=== PATIENT | male | born 1950 | race Caucasian/White ===

== ENCOUNTER 2017-11-01 20:47 | Inpatient (IN) | payer OTHER, BC, MEDICARE ==
[2017-11-01 23:38] LABS: ADD MAN DIFF? NO
[2017-11-01 23:42] LABS: WHITE BLOOD COUNT 7.2 10^3/ul (4.8-10.8)
[2017-11-01 23:42] LABS: BASOPHILS % 0.3 % (0.0-2.0); EOSINOPHILS % 0.1 % (0.0-7.0); HEMATOCRIT 43.4 % (42.0-52.0); HEMOGLOBIN 14.8 g/dl (14.0-18.0); LYMPHOCYTES # 0.8 10^3/ul (0.8-2.9); LYMPHOCYTES % 10.5 % (15.0-51.0); MEAN CORPUSCULAR HEMOGLOBIN 30.6 pg (29.0-33.0); MEAN CORPUSCULAR HGB CONC 34.1 g/dl (32.0-37.0); MEAN CORPUSCULAR VOLUME 89.9 fl (82.0-101.0); MEAN PLATELET VOLUME 9.9 fl (7.4-10.4); MONOCYTE # 0.6 10^3/ul (0.3-0.9); MONOCYTES % 8.3 % (0.0-11.0); NEUTROPHIL # 5.8 10^3/ul (1.6-7.5); NEUTROPHILS % 80.5 % (39.0-77.0); PLATELET COUNT 240 10^3/UL (140-415); RED BLOOD COUNT 4.83 10^6/ul (4.70-6.10); RED CELL DISTRIBUTION WIDTH 12.8 % (11.5-14.5)
[2017-11-01] MEDS: ONDANSETRON 4 MG INJ IV (23:46)
[2017-11-01] MEDS: SOD CHLORIDE 0.9% 500 ML IV (23:46)
[2017-11-01] MEDS: morphine 4 MG/ML VIAL IV (23:46)
[2017-11-01 23:52] LABS: ADD UMIC YES; UR ASCORBIC ACID 20 mg/dL (NEGATIVE); UR BACTERIA FEW /HPF (NONE SEEN); UR BILIRUBIN (Dip) NEGATIVE (NEGATIVE); UR BLOOD (Dip) 2+ mg/dL (NEGATIVE); UR CALCIUM OXALATE CRYSTAL FEW /HPF (NONE SEEN); UR CLARITY SLIGHTLY CLOUDY (CLEAR); UR COLOR YELLOW (YELLOW); UR GLUCOSE (Dip) 1+ mg/dL (NEGATIVE); UR KETONES (Dip) 2+ mg/dL (NEGATIVE); UR LEUKOCYTE ESTERASE (Dip) NEGATIVE Leu/ul (NEGATIVE); UR MUCUS MODERATE /HPF (NONE SEEN); UR NITRITE (Dip) NEGATIVE (NEGATIVE); UR RBC 82 /HPF (0-5); UR SPECIFIC GRAVITY (Dip) 1.026 (1.003-1.030); UR SQUAMOUS EPITHELIAL CELL FEW /HPF (FEW); UR TOTAL PROTEIN (Dip) 1+ mg/dl (NEGATIVE); UR UROBILINOGEN (Dip) 1+ mg/dL (NEGATIVE); UR WBC 3 /HPF (0-5)
[2017-11-01 23:59] LABS: ALANINE AMINOTRANSFERASE 16 IU/L (13-69); ALBUMIN 3.8 g/dl (3.3-4.9); ALBUMIN/GLOBULIN RATIO 1.18; ALKALINE PHOSPHATASE 54 IU/L (42-121); ANION GAP 12 (8-16); ASPARTATE AMINO TRANSFERASE 25 IU/L (15-46); BILIRUBIN,INDIRECT 2.2 mg/dl (0-1.1); BILIRUBIN,TOTAL 2.2 mg/dl (0.2-1.3); BLOOD UREA NITROGEN 22 mg/dl (7-20); CALCIUM 8.8 mg/dl (8.4-10.2); CARBON DIOXIDE 27 mmol/L (21-31); CHLORIDE 100 mmol/L (97-110); CREATININE 0.65 mg/dl (0.61-1.24); GLUCOSE 136 mg/dl (70-220); LIPASE 45 U/L (23-300); POTASSIUM 4.4 mmol/L (3.5-5.1); SODIUM 135 mmol/L (135-144)
[2017-11-02] MEDS ORDERED: NACL 0.9% 3 ML SYG IV (03:00)
[2017-11-02] MEDS ORDERED: ONDANSETRON 4 MG INJ IV (03:00)
[2017-11-02] MEDS: DEXTROSE 5%-0.45% NACL 1,000 ML IV ×3 (04:12→20:39)
[2017-11-02] MEDS: morphine 2 MG INJ IV (05:12)
[2017-11-02] MEDS: FAMOTIDINE 20 MG INJ IV ×2 (09:04→21:04)
[2017-11-02] MEDS: ENOXAPARIN 40 MG/0.4 ML SYG SC (09:16)
[2017-11-02] MEDS: DIATR MEGLU/DIATRIZOATE SODIUM 120 ML BTL (14:31)
[2017-11-03 05:11] LABS: ADD MAN DIFF? NO
[2017-11-03 05:12] LABS: BASOPHILS % 0.2 % (0.0-2.0); HEMATOCRIT 44.9 % (42.0-52.0); HEMOGLOBIN 15.3 g/dl (14.0-18.0); LYMPHOCYTES # 0.7 10^3/ul (0.8-2.9); LYMPHOCYTES % 8.1 % (15.0-51.0); MEAN CORPUSCULAR HEMOGLOBIN 30.2 pg (29.0-33.0); MEAN CORPUSCULAR HGB CONC 34.1 g/dl (32.0-37.0); MEAN CORPUSCULAR VOLUME 88.7 fl (82.0-101.0); MEAN PLATELET VOLUME 10.4 fl (7.4-10.4); MONOCYTE # 0.9 10^3/ul (0.3-0.9); MONOCYTES % 10.7 % (0.0-11.0); NEUTROPHILS % 80.8 % (39.0-77.0); PLATELET COUNT 274 10^3/UL (140-415); RED BLOOD COUNT 5.06 10^6/ul (4.70-6.10); RED CELL DISTRIBUTION WIDTH 12.7 % (11.5-14.5)
[2017-11-03 05:12] LABS: WHITE BLOOD COUNT 8.7 10^3/ul (4.8-10.8)
[2017-11-03 05:54] LABS: PHOSPHORUS 4.8 mg/dl (2.5-4.9)
[2017-11-03 05:54] LABS: MAGNESIUM 1.9 mg/dl (1.7-2.5)
[2017-11-03 05:57] LABS: ANION GAP 13 (8-16); BLOOD UREA NITROGEN 23 mg/dl (7-20); CALCIUM 9.1 mg/dl (8.4-10.2); CARBON DIOXIDE 34 mmol/L (21-31); CHLORIDE 96 mmol/L (97-110); CREATININE 0.71 mg/dl (0.61-1.24); GLUCOSE 152 mg/dl (70-220); POTASSIUM 3.8 mmol/L (3.5-5.1); SODIUM 139 mmol/L (135-144)
[2017-11-03] MEDS: DEXTROSE 5%-0.45% NACL 1,000 ML IV ×3 (06:24→21:08)
[2017-11-03] MEDS: FAMOTIDINE 20 MG INJ IV ×2 (08:32→21:08)
[2017-11-03] MEDS: ENOXAPARIN 40 MG/0.4 ML SYG SC (08:34)
[2017-11-04] MEDS: DEXTROSE 5%-0.45% NACL 1,000 ML IV ×3 (04:59→20:29)
[2017-11-04 05:46] LABS: ADD MAN DIFF? NO
[2017-11-04 06:00] LABS: BASOPHILS % 0.2 % (0.0-2.0); EOSINOPHILS % 0.1 % (0.0-7.0); HEMATOCRIT 43.6 % (42.0-52.0); HEMOGLOBIN 14.8 g/dl (14.0-18.0); LYMPHOCYTES # 0.8 10^3/ul (0.8-2.9); LYMPHOCYTES % 8.9 % (15.0-51.0); MEAN CORPUSCULAR HGB CONC 33.9 g/dl (32.0-37.0); MEAN CORPUSCULAR VOLUME 88.4 fl (82.0-101.0); MEAN PLATELET VOLUME 10.7 fl (7.4-10.4); MONOCYTE # 1.1 10^3/ul (0.3-0.9); MONOCYTES % 12.3 % (0.0-11.0); NEUTROPHIL # 7.2 10^3/ul (1.6-7.5); NEUTROPHILS % 78.2 % (39.0-77.0); PLATELET COUNT 280 10^3/UL (140-415); RED BLOOD COUNT 4.93 10^6/ul (4.70-6.10); RED CELL DISTRIBUTION WIDTH 12.9 % (11.5-14.5)
[2017-11-04 06:00] LABS: WHITE BLOOD COUNT 9.1 10^3/ul (4.8-10.8)
[2017-11-04 06:30] LABS: MAGNESIUM 1.8 mg/dl (1.7-2.5)
[2017-11-04 06:37] LABS: ANION GAP 11 (8-16); BLOOD UREA NITROGEN 26 mg/dl (7-20); CALCIUM 8.6 mg/dl (8.4-10.2); CARBON DIOXIDE 32 mmol/L (21-31); CHLORIDE 96 mmol/L (97-110); CREATININE 0.63 mg/dl (0.61-1.24); GLUCOSE 123 mg/dl (70-220); POTASSIUM 3.6 mmol/L (3.5-5.1); SODIUM 135 mmol/L (135-144)
[2017-11-04] MEDS: FAMOTIDINE 20 MG INJ IV ×2 (08:34→20:29)
[2017-11-04] MEDS: ENOXAPARIN 40 MG/0.4 ML SYG SC (08:37)
[2017-11-05] MEDS: DEXTROSE 5%-0.45% NACL 1,000 ML IV ×3 (04:34→19:54)
[2017-11-05 06:19] LABS: ANION GAP 12 (8-16); BLOOD UREA NITROGEN 22 mg/dl (7-20); CALCIUM 8.7 mg/dl (8.4-10.2); CARBON DIOXIDE 30 mmol/L (21-31); CHLORIDE 98 mmol/L (97-110); CREATININE 0.61 mg/dl (0.61-1.24); GLUCOSE 111 mg/dl (70-220); POTASSIUM 3.6 mmol/L (3.5-5.1); SODIUM 136 mmol/L (135-144)
[2017-11-05 06:26] LABS: MAGNESIUM 1.8 mg/dl (1.7-2.5)
[2017-11-05] MEDS: FAMOTIDINE 20 MG INJ IV ×2 (09:34→20:33)
[2017-11-05] MEDS: ENOXAPARIN 40 MG/0.4 ML SYG SC (09:45)
[2017-11-06] MEDS: DEXTROSE 5%-0.45% NACL 1,000 ML IV ×2 (04:03→12:57)
[2017-11-06] MEDS ORDERED: EPHEDrine SULFATE 50 MG/5 ML SYG (07:00)
[2017-11-06] MEDS: FAMOTIDINE 20 MG INJ IV ×2 (08:16→20:36)
[2017-11-06] MEDS: ENOXAPARIN 40 MG/0.4 ML SYG SC (09:00)
[2017-11-06] MEDS ORDERED: HYDROmorphONE 1 MG/5 ML IV SYRINGE IV ×3 (14:30)
[2017-11-06] MEDS ORDERED: MEPERIDINE 25 MG INJ IV (14:30)
[2017-11-06] MEDS ORDERED: ONDANSETRON 4 MG INJ IV ×2 (14:30→16:30)
[2017-11-06] MEDS ORDERED: PROCHLORPERAZINE 10 MG INJ IV (14:30)
[2017-11-06] MEDS ORDERED: ALBUTEROL 0.083% (NEB) 2.5 MG/3 ML AMP HHN (14:30)
[2017-11-06] MEDS ORDERED: MIDAZOLAM 1 MG/ML 2 ML INJ (15:00)
[2017-11-06] MEDS ORDERED: FENTAnyl 50 MCG/ML VIAL (15:00)
[2017-11-06] MEDS ORDERED: DEXAMETHASONE 4 MG/ML 1 ML INJ (15:18)
[2017-11-06] MEDS ORDERED: ONDANSETRON 4 MG INJ (15:18)
[2017-11-06] MEDS ORDERED: ROCURONIUM 50 MG INJ (15:25)
[2017-11-06] MEDS ORDERED: CEFAZOLIN 1 GM INJ (15:25)
[2017-11-06] MEDS ORDERED: LIDOCAINE 100 MG SYRINGE (15:25)
[2017-11-06] MEDS ORDERED: SUCCINYLCHOLINE CHLORIDE 100 MG/5 ML SYG IV (15:25)
[2017-11-06] MEDS ORDERED: PROPOFOL 20 ML (15:25)
[2017-11-06] MEDS ORDERED: PHENYLephrine (100 MCG/ML) 5ML SYG (15:45)
[2017-11-06] MEDS: LIDOCAINE 1%/EPI 30 ML INJ (15:49)
[2017-11-06] MEDS: BUPIVACAINE 0.25% (MPF) 30 ML INJ (15:49)
[2017-11-06] MEDS ORDERED: SUGAMMADEX SODIUM 200 MG/2 ML VIAL IV (15:56)
[2017-11-06] MEDS ORDERED: ACETAMINOPHEN 325 MG TAB PO (16:30)
[2017-11-06] MEDS ORDERED: morphine 2 MG INJ IV (16:30)
[2017-11-06] MEDS ORDERED: KETOROLAC 15 MG INJ IV (17:00)
[2017-11-06] MEDS: D5-NS + KCL 20 MEQ 1,000 ML IV (19:05)
[2017-11-06] MEDS: KETOROLAC 15 MG INJ IV (20:00)
[2017-11-07] MEDS: KETOROLAC 15 MG INJ IV ×4 (02:00→20:33)
[2017-11-07] MEDS: D5-NS + KCL 20 MEQ 1,000 ML IV ×3 (03:29→23:00)
[2017-11-07 05:02] LABS: ADD MAN DIFF? NO
[2017-11-07 05:07] LABS: WHITE BLOOD COUNT 6.9 10^3/ul (4.8-10.8)
[2017-11-07 05:07] LABS: ABNORMAL IP MESSAGE 1; BASOPHILS % 0.1 % (0.0-2.0); HEMATOCRIT 34.8 % (42.0-52.0); HEMOGLOBIN 11.8 g/dl (14.0-18.0); LYMPHOCYTES # 0.5 10^3/ul (0.8-2.9); LYMPHOCYTES % 6.7 % (15.0-51.0); MEAN CORPUSCULAR HEMOGLOBIN 30.3 pg (29.0-33.0); MEAN CORPUSCULAR HGB CONC 33.9 g/dl (32.0-37.0); MEAN CORPUSCULAR VOLUME 89.2 fl (82.0-101.0); MONOCYTE # 0.7 10^3/ul (0.3-0.9); MONOCYTES % 10.1 % (0.0-11.0); NEUTROPHIL # 5.7 10^3/ul (1.6-7.5); PLATELET COUNT 277 10^3/UL (140-415); POSITIVE DIFF @See below; RED CELL DISTRIBUTION WIDTH 12.4 % (11.5-14.5)
[2017-11-07 05:26] LABS: MAGNESIUM 1.9 mg/dl (1.7-2.5)
[2017-11-07 05:34] LABS: ANION GAP 5 (8-16); BLOOD UREA NITROGEN 11 mg/dl (7-20); CALCIUM 8.2 mg/dl (8.4-10.2); CARBON DIOXIDE 32 mmol/L (21-31); CHLORIDE 103 mmol/L (97-110); CREATININE 0.63 mg/dl (0.61-1.24); GLUCOSE 129 mg/dl (70-220); POTASSIUM 3.9 mmol/L (3.5-5.1); SODIUM 136 mmol/L (135-144)
[2017-11-07] MEDS ORDERED: ENOXAPARIN 40 MG/0.4 ML SYG SC (07:00)
[2017-11-07] MEDS: ENOXAPARIN 40 MG/0.4 ML SYG SC (08:29)
[2017-11-07] MEDS: FAMOTIDINE 20 MG INJ IV ×2 (08:30→20:33)
[2017-11-08] MEDS: KETOROLAC 15 MG INJ IV ×3 (02:00→13:57)
[2017-11-08] MEDS: D5-NS + KCL 20 MEQ 1,000 ML IV (02:30)
[2017-11-08] MEDS: FAMOTIDINE 20 MG INJ IV (08:21)
[2017-11-08] MEDS: ENOXAPARIN 40 MG/0.4 ML SYG SC (08:25)
[2017-11-08] MEDS: IBUPROFEN 600 MG TAB PO (14:14)
== END 2017-11-08 15:00 | disposition home or self-care (01) | DRG 337 ==
LOC: E/R 20:47 → MS1 11-02 02:41
PROC: 0DNU4ZZ Release Omentum, Percutaneous Endoscopic Approach (ICD-10-PCS; principal; 2017-11-06 15:25)
DX: K56.50 Intestinal adhesions [bands], unspecified as to partial versus complete obstruction (principal); E78.5 Hyperlipidemia, unspecified; N31.9 Neuromuscular dysfunction of bladder, unspecified; Z98.890 Other specified postprocedural states
CPT/HCPCS: 71045; 74019; 74176; 74250; 80048; 80053; 81001; 83690; 83735; 84100; 85025; 93005